=== PATIENT | female | born 1950 | race Two or more races ===

== ENCOUNTER 2023-04-05 23:01 | Inpatient (IN) | payer MEDICAID ==
[~2023-04-05] VITALS: Ht 152.4 cm; Wt 59.1 kg
[2023-04-05 23:50] LABS: BASOPHILS % (AUTO) 0.4 % (0.0-2.0); EOSINOPHILS % (AUTO) 0.1 % (1.0-6.0); HEMATOCRIT 39.7 % (36-46); HEMOGLOBIN 13.3 g/dL (12.0-16.0); LYMPHOCYTES % (AUTO) 7.1 % (22.0-44.0); MEAN CORPUSCULAR HEMOGLOBIN 29.7 pg (26.0-34.0); MEAN CORPUSCULAR HGB CONC 33.6 G/dL (31.0-37.0); MEAN CORPUSCULAR VOLUME 89 fL (80-100); MONOCYTES # (AUTO) 0.6 K/uL (0.1-1.0); MONOCYTES % (AUTO) 4.5 % (2.0-9.0); NEUTROPHILS # (AUTO) 11.9 K/uL (1.8-7.7); PLATELET COUNT (AUTO) 212 K/uL (150-450); RED BLOOD CELL COUNT(AUTO) 4.48 MIL/uL (4.00-5.20); RED CELL DISTRIBUTION WIDTH 14.2 % (11.5-14.5)
[2023-04-05 23:54] LABS: NEUTROPHILS % (AUTO) 87.9 % (40.0-70.0)
[2023-04-05 23:58] LABS: ANION GAP 10 mmol/L (8-16); CALCIUM, TOTAL 9.6 mg/dL (8.8-10.5); CARBON DIOXIDE 27 mmol/L (22-29); CHLORIDE 97 mmol/L (98-107); GLOMERULAR FILTR. RATE CALC > 60 mL/min (>60); GLUCOSE,RANDOM 135 mg/dL (70-110); POTASSIUM 4.2 mmol/L (3.5-5.1); SODIUM SERUM 134 mmol/L (136-145)
[2023-04-06 00:05] LABS: ALANINE AMINOTRANSFERASE 17 U/L (12-78); ALBUMIN 3.6 g/dL (3.4-5.0); ALKALINE PHOSPHATASE 62 U/L (46-116); ASPARTATE AMINOTRANSFERASE 16 U/L (15-37); BILIRUBIN,TOTAL 1.1 mg/dL (0.1-1.0); LIPASE 30 U/L (16-77); TOTAL PROTEIN, SERUM 7.4 g/dL (6.4-8.2)
[2023-04-06] MEDS ORDERED: IOHEXOL 350 MG/ML 100 ML VIAL ONE (00:35)
[2023-04-06] MEDS ORDERED: SODIUM CHLORIDE 0.9% 100 ML ONE (00:35)
[2023-04-06 03:18] LABS: APPEARANCE,URINE CLEAR (CLEAR); BILIRUBIN,URINE NEGATIVE (NEGATIVE); GLUCOSE, URINE (UA) NEGATIVE (NEGATIVE); LEUKOCYTE ESTERASE ,URINE NEGATIVE (NEGATIVE); NITRATE,URINE NEGATIVE (NEGATIVE); OCCULT BLOOD,URINE TRACE (NEGATIVE); PH,URINE 5.5 (5.0-8.0); PROTEIN,URINE NEGATIVE (NEGATIVE); UROBILINOGEN,URINE <=1.0 mg/dL (<=1.0)
[2023-04-06] MEDS ORDERED: MetroNIDAZOLE 250 MG TABLET PO ONE (03:30)
[2023-04-06] MEDS ORDERED: CIPROFLOXACIN 400 MG/D5% WATER 200 ML IV ONE (03:30)
[2023-04-06 03:37] LABS: BACTERIA,URINE None Seen /HPF (None Seen); RBC,URINE 0-2 /HPF (0-2); WBC,URINE None Seen /HPF (0-5)
[2023-04-06 03:38] LABS: SQUAMOUS EPITHELIAL CELL,UR Few /LPF (None Seen)
[2023-04-06] MEDS ORDERED: SODIUM CHLORIDE 0.9% 1,000 ML IV ONE ×2 (08:30)
[2023-04-06] MEDS ORDERED: ONDANSETRON HCL 4 MG/2 ML VIAL IVP PRN (08:30)
[2023-04-06] MEDS ORDERED: MORPHINE SULFATE 2 MG/ML SYRINGE IVP PRN (08:30)
[2023-04-06] MEDS ORDERED: BUPIVACAINE 0.25%/EPI 1:200,000/PF 10 ML VIAL ONE (08:42)
[2023-04-06] MEDS ORDERED: SODIUM CL IRRIG SOLN BAG 3,000 ML IRRIG ONE (08:42)
[2023-04-06] MEDS ORDERED: RINGERS SOLUTION,LACTATED 1,000 ML IV ONE (09:15)
[2023-04-06] MEDS ORDERED: ETHYL ALCOHOL 62% ANTISEPTIC NASAL SANITIZER 0.6 ML AMPUL NASAL ONE (09:15)
[2023-04-06] MEDS: PIPERACILLIN/TAZO 3.375 GM/D5W 50 ML IV SCH ×3 (09:54→20:52)
[2023-04-06] MEDS ORDERED: ACETAMINOPHEN 1000 MG/ISO-OSM 100 ML IV ONE ×2 (11:26→14:30)
[2023-04-06] MEDS ORDERED: FentaNYL CITRATE PF 100 MCG/2 ML VIAL ONE (12:10)
[2023-04-06] MEDS ORDERED: FentaNYL CITRATE PF 100 MCG/2 ML VIAL IVP PRN (12:30)
[2023-04-06] MEDS ORDERED: MEPERIDINE-PF 25 MG/ML VIAL IVP PRN (12:30)
[2023-04-06 13:46] VITALS: BP 98/46; PULSE 45; RESP 20; TEMP 97.5
[2023-04-06] MEDS: PANTOPRAZOLE SODIUM 40 MG/VIAL IVP SCH (14:20)
[2023-04-06] MEDS: DOCUSATE SODIUM 100 MG CAPSULE PO SCH ×2 (14:21→20:37)
[2023-04-06] MEDS ORDERED: SODIUM CHLORIDE 0.9% 500 ML IV ONE (16:55)
[2023-04-06 17:05] LABS: APPEARANCE,URINE CLEAR (CLEAR); BILIRUBIN,URINE NEGATIVE (NEGATIVE); GLUCOSE, URINE (UA) NEGATIVE (NEGATIVE); LEUKOCYTE ESTERASE ,URINE NEGATIVE (NEGATIVE); NITRATE,URINE NEGATIVE (NEGATIVE); OCCULT BLOOD,URINE TRACE (NEGATIVE); PROTEIN,URINE NEGATIVE (NEGATIVE); UROBILINOGEN,URINE <=1.0 mg/dL (<=1.0)
[2023-04-06 17:23] LABS: BACTERIA,URINE None Seen /HPF (None Seen); RBC,URINE 0-2 /HPF (0-2); WBC,URINE 0-2 /HPF (0-5)
[2023-04-06 19:40] VITALS: BP 118/56; PULSE 56; RESP 16; TEMP 99.3
[2023-04-06] MEDS: ACETAMINOPHEN 325 MG TABLET PO PRN (20:38)
[2023-04-07] MEDS: PIPERACILLIN/TAZO 3.375 GM/D5W 50 ML IV SCH ×2 (02:53→09:00)
[2023-04-07 04:00] VITALS: BP 115/44; PULSE 58; RESP 16; TEMP 98.6
[2023-04-07] MEDS ORDERED: SUGAMMADEX SODIUM 200 MG/2 ML VIAL IVP ONE (06:58)
[2023-04-07 07:00] VITALS: BP 107/45; PULSE 59; RESP 18; TEMP 98.3
[2023-04-07] MEDS ORDERED: ROCURONIUM BROMIDE 10 MG/ML 5 ML VIAL IVP ONE (07:09)
[2023-04-07] MEDS ORDERED: GLYCOPYRROLATE 0.2 MG/ML VIAL IM ONE (07:10)
[2023-04-07] MEDS ORDERED: KETOROLAC TROMETHAMINE 60 MG/2 ML VIAL IM ONE (07:10)
[2023-04-07] MEDS ORDERED: ONDANSETRON HCL 4 MG/2 ML VIAL IVP ONE (07:10)
[2023-04-07] MEDS ORDERED: PROPOFOL 1% 20 ML VIAL IVP ONE (07:11)
[2023-04-07 07:47] LABS: BASOPHILS % (AUTO) 0.3 % (0.0-2.0); EOSINOPHILS % (AUTO) 0.3 % (1.0-6.0); HEMOGLOBIN 12.4 g/dL (12.0-16.0); LYMPHOCYTES % (AUTO) 8.9 % (22.0-44.0); MEAN CORPUSCULAR HEMOGLOBIN 29.9 pg (26.0-34.0); MEAN CORPUSCULAR HGB CONC 33.4 G/dL (31.0-37.0); MEAN CORPUSCULAR VOLUME 90 fL (80-100); MONOCYTES # (AUTO) 0.4 K/uL (0.1-1.0); MONOCYTES % (AUTO) 3.7 % (2.0-9.0); NEUTROPHILS # (AUTO) 9.9 K/uL (1.8-7.7); PLATELET COUNT (AUTO) 175 K/uL (150-450); RED BLOOD CELL COUNT(AUTO) 4.14 MIL/uL (4.00-5.20); RED CELL DISTRIBUTION WIDTH 14.2 % (11.5-14.5)
[2023-04-07 08:04] LABS: NEUTROPHILS % (AUTO) 86.8 % (40.0-70.0)
[2023-04-07 08:05] LABS: ANION GAP 9 mmol/L (8-16); CALCIUM, TOTAL 8.5 mg/dL (8.8-10.5); CARBON DIOXIDE 27 mmol/L (22-29); CHLORIDE 101 mmol/L (98-107); CREATININE 0.88 mg/dL (0.60-1.30); GLOMERULAR FILTR. RATE CALC > 60 mL/min (>60); GLUCOSE,RANDOM 114 mg/dL (70-110); POTASSIUM 3.8 mmol/L (3.5-5.1); SODIUM SERUM 137 mmol/L (136-145)
[2023-04-07] MEDS: DOCUSATE SODIUM 100 MG CAPSULE PO SCH (08:55)
[2023-04-07] MEDS: PANTOPRAZOLE SODIUM 40 MG/VIAL IVP SCH (08:56)
[2023-04-07] MEDS: ACETAMINOPHEN 325 MG TABLET PO PRN (10:51)
== END 2023-04-07 15:00 | disposition home or self-care (01) | DRG 234 ==
LOC: EMS 23:03 → 6S 04-06 06:00
PROVIDERS: ADMIT Internal Medicine; ATTEND Internal Medicine
PROC: 0DTJ4ZZ Resection of Appendix, Percutaneous Endoscopic Approach (ICD-10-PCS; principal; 2023-04-06 10:30)
DX: K35.891 Other acute appendicitis without perforation, with gangrene (principal); D72.829 Elevated white blood cell count, unspecified; R63.0 Anorexia; Z98.51 Tubal ligation status; Z68.25 Body mass index [BMI] 25.0-25.9, adult
CPT/HCPCS: 74022; 74177; 80048; 80053; 81001; 81003; 83690; 84484; 85025; 87081; 88304; 93005; 99291; C9113; J0131; J0744; J1885; J2405; J2543; J2704; J3010; J3490; J7030; J7040; J7050; J7120; Q9967